=== PATIENT | female | born 1955 | race Caucasian/White ===

== ENCOUNTER → 2021-01-24 | Outpatient (CLI) | payer MEDICARE ==
[~2021-01-24] MED LIST: ASPIRIN EC81 MG PO; ATORVASTATIN CA20 MG PO; ELAVIL 10 MG TA10 MG PO; LISINOPRIL40 MG PO; LOPRESSOR50 MG PO; NORCO 5-325 TA1 EACH PO; NORVASC 5 MG TAB5 MG PO
== END ==
LOC: KOH-I 10:05
DX: R93.89 Abnormal findings on diagnostic imaging of other specified body structures (principal); J98.59 Other diseases of mediastinum, not elsewhere classified; N20.0 Calculus of kidney
CPT/HCPCS: 71250

== ENCOUNTER → 2022-02-23 | Outpatient (CLI) | payer MEDICARE | LOC: KOH-I 14:38 | DX: F17.210 Nicotine dependence, cigarettes, uncomplicated (principal) | CPT/HCPCS: 71271 ==